=== PATIENT | female | born 1980 | race Caucasian/White ===

== ENCOUNTER 2016-05-03 16:02 | Emergency (ER) | payer OTHER ==
[2016-05-03 16:42] VITALS: BP 140/87
--- NOTE | 2016-05-03 17:40 | UC ---
Complaint Female HPI - HPI Summary HPI Summary: complaint of noticing blood in her urine this morning pain with urination that started today increased urgency and frequency can't get enough urine out denies fever , back abdominal pain hasn't taken any medication for symptoms today - History Of Current Complaint Chief Complaint: UCGU Stated Complaint: BLOOD IN URINE Time Seen by Provider: 05/03/16 17:32 Hx Obtained From: Patient Hx Last Menstrual Period: 1 WEEK AGO - Allergies/Home Medications Allergies/Adverse Reactions: Allergies Allergy/AdvReac Type Severity Reaction Status Date / Time Penicillins Allergy Hives Verified 05/03/16 16:42 Sulfa Antibiotics Allergy Hives Verified 05/03/16 16:42 PMH/Surg Hx/FS Hx/Imm Hx Previously Healthy: Yes Respiratory History Of: Denies: Asthma - Surgical History Surgical History: Yes Surgery Procedure, Year, and Place: left hip repair; tonsils; ear tubes x 2; egg donor; wisdom teeth - Family History Known Family History: Positive: None Negative: Cardiac Disease, Hypertension, Diabetes - Social History Occupation: Employed Full-time Lives: With Family Alcohol Use: Occasionally Substance Use Type: Marijuana Smoking Status (MU): Never Smoked Tobacco Review of Systems Constitutional: Negative Skin: Negative Eyes: Negative ENT: Negative Respiratory: Negative Cardiovascular: Negative Gastrointestinal: Negative Genitourinary: Dysuria, Hematuria, Frequency, Urgency Motor: Negative Neurovascular: Negative Musculoskeletal: Negative Neurological: Negative Psychological: Negative All Other Systems Reviewed And Are Negative: Yes Physical Exam Triage Information Reviewed: Yes Appearance: No Pain Distress, Well-Nourished Vital Signs: Initial Vital Signs Temp 97.6 F 05/03/16 16:40 Pulse 77 05/03/16 16:40 Resp 16 05/03/16 16:40 BP 140/87 05/03/16 16:40 Vital Signs Reviewed: Yes Eyes: Positive: Conjunctiva Clear ENT: Positive: Pharynx normal, TMs normal. Negative: Nasal congestion Neck: Positive: No Lymphadenopathy Respiratory: Positive: Lungs clear, Normal breath sounds, No respiratory distress Cardiovascular: Positive: RRR, No Murmur, Pulses Normal Abdomen Description: Positive: Nontender, No Organomegaly, Soft. Negative: CVA Tenderness (R), CVA Tenderness (L), Distended, Guarding Bowel Sounds: Positive: Present Musculoskeletal: Positive: No Edema Neurological Exam: Normal Psychological Exam: Normal Skin Exam: Normal Complaint Female Dx - Course Course Of Treatment: exam completed. will rx for maccrobid d/t no flank pain or fever, pt is a runnner and doesn't want cipro - Differential Dx/Diagnosis Differential Diagnosis/HQI/PQRI: Ureteral Stone, Urinary Tract Infection Provider Diagnoses: UTI Discharge - Discharge Plan Condition: Stable Disposition: HOME Prescriptions: Nitrofurantoin Monohyd Macro [Macrobid] 100 mg PO BID #10 cap Phenazopyridine TAB* [Pyridium TAB*] 100 mg PO TID #6 tab Patient Education Materials: Urinary Tract Infection in Women (ED) Referrals: No Primary Care Phys,NOPCP [Primary Care Provider] - [facility] [place] [facility] [Outside] Additional Instructions: URINARY TRACT INFECTIONS What are Urinary Tract Infections? Commonly referred to as bladder or kidney infections, urinary tract infections ( UTIs) are caused by bacteria. Bacteria enter the body through the tube that carries urine from the bladder to the outside of the body (urethra). UTIs are more common in infants, young children (especially girls) and women. Females get UTIs more often because the urethra is much shorter than males. Sexual intercourse increases the risk of infection in women. Diabetic and women also have an increased susceptibility to urinary tract infections. Symptoms Might Include: Abdomen, side, or back pain Frequency, urgency, or trouble urinating Pain or burning when urinating Dark, cloudy, bloody, or foul-smelling urine Fever Poor appetite or refusal to eat Vomiting Symptoms Specific to Infants / Children: More irritable than normal A child who knows how to use the toilet begins wetting the bed or underwear Treatment Recommendations: Medicine should be taken exactly as prescribed. Drink plenty of fluids, especially water. Cranberry juice is a good choice of beverage, because it increases the acidity of urine, which helps to prevent infection. Empty the bladder as soon as the urge is felt. Women should empty the bladder after sexual intercourse. After using the toilet, always wipe front to back. Wear loose fitting clothing (including underwear). Uncircumcised males should wash the foreskin on the penis regularly. Call Your Doctor or Return Here IF: Fever (greater than 101F by mouth) or chills. Back or flank pain begins or worsens. Nausea or vomiting begins or worsens. Unable to take your medications because of vomiting. Urinating less or not at all. Discharge from the vagina Any other new symptoms that worry you.
[2016-05-03] MEDS ORDERED: Phenazopyridine TAB* 100 MG PO ONE (17:48)
[2016-05-03] MEDS ORDERED: Nitrofurantoin Macrocrystals* 50 MG CAP PO ONE (17:49)
== END 2016-05-03 18:05 | disposition home or self-care (01) ==
LOC: UCEAST 16:02
DX: N39.0 Urinary tract infection, site not specified (principal); R31.9 Hematuria, unspecified; Z88.0 Allergy status to penicillin; Z88.2 Allergy status to sulfonamides; F12.90 Cannabis use, unspecified, uncomplicated
CPT/HCPCS: 81002; 87077; 87086; 87186; 99213; A9270-GY; G0463